=== PATIENT | male | born 1960 | race Caucasian/White ===

== ENCOUNTER → 2016-07-18 | Outpatient (CLI) | payer OTHER ==
[~2016-07-18] MED LIST: AUGMENTIN 875 M1 TAB PO; FLAGYL500 MG PO; FLOMAX 0.40.4 MG/CAP PO; LIPITOR 10MG10 MG PO; NEXIUM PO; NORCO 325 MG-51 TAB PO; NORVASC 5MG5 MG/TAB PO; TENORMIN 2525 MG/TAB PO; TENORMIN 5050 MG/TAB PO; ZESTRIL40 MG PO; bp pill
== END ==
LOC: COL.RAD 13:01
DX: Z02.71 Encounter for disability determination (principal); I10 Essential (primary) hypertension